=== PATIENT | male | born 1995 | race Two or more races ===

== ENCOUNTER 2017-07-27 20:45 | Emergency (ER) | payer SELFPAY ==
[2017-07-27] MEDS ORDERED: IBUPROFEN 200 MG TAB PO ONE (21:16)
[2017-07-27] MEDS ORDERED: DEXAMETHASONE 4 MG TAB PO ONE (21:16)
[2017-07-27] MEDS ORDERED: LIDOCAINE 2% VISCOUS 15 ML UDCUP PO ONE (21:17)
--- NOTE | 2017-07-27 21:19 | EDPHY ---
H & P Stated Complaint: sore throat Time Seen by Provider: 07/27/17 21:17 HPI/ROS: HPI: This is a 22-year-old male who presents with Chief Complaint: Sore throat Location: Throat Quality: Sore Duration: 2 days Signs and Symptoms: No fever, no chills, + ear pressure, + fatigue, + discomfort with swallowing, no drooling, no swollen glands, no abdominal pain, no neck stiffness, no nausea vomiting Timing: Sudden, constant Severity: Moderate Context: Patient reports that he has had a sore throat for 2-3 days. Modifying Factors: has Not tried any [id number] medications Comment: ROS: Constitutional: No fever, no chills, no weight loss Eyes: No blurred vision Respiratory: No shortness of breath, no cough Cardiovascular: No chest pain Gastrointestinal: No nausea, no vomiting no diarrhea Genitourinary: No dysuria Extremities: No myalgias Neurologic: No weakness, no numbness Skin: No rashes Hematologic: No bruising, no bleeding MEDICAL/SURGICAL/SOCIAL HISTORY: Generally healthy. Right knee arthroscopy. Source: Patient Exam Limitations: No limitations - Personal History Current Tetanus/Diphtheria Vaccine: Yes Current Tetanus Diphtheria and Acellular Pertussis (TDAP): Yes Tetanus Vaccine Date: 2012 - Medical/Surgical History Hx Asthma: No Hx Chronic Respiratory Disease: No Hx Diabetes: No Hx Cardiac Disease: No Hx Renal Disease: No Hx Cirrhosis: No Hx Alcoholism: No Hx HIV/AIDS: No Hx Splenectomy or Spleen Trauma: No Other PMH: PSH: R knee;. PMH: R ankle inj; - Social History Smoking Status: Never smoked - Physical Exam Exam: CONSTITUTIONAL: Teenage male, polite and cooperative, awake and alert, no obvious distress HEENT: Atraumatic and normocephalic, PERRL, EOMI. Tympanic membranes clear. Oropharynx clear, tonsils 1+; beefy red; + white exudate, uvula midline and moist pink mucosa. Airway patent. + spotty anterior cervical lymphadenopathy. No meningismus. Cardiovascular: Normal S1/S2, regular rate, tachycardia, without murmur rub or gallop. PULMONARY/CHEST: Symmetrical and nontender. Clear to auscultation bilaterally Good air movement. No accessory muscle usage. ABDOMEN: Soft, nondistended, nontender, no rebound, no guarding, no peritoneal signs, no masses or organomegaly. No CVAT. EXTREMITIES: 2/2 pulses, no deformities, no clubbing, no cyanosis or edema. NEUROLOGICAL: no focal neuro deficits. GCS 15. SKIN: Warm and dry, no erythema. no rash. Good capillary refill. Constitutional: Initial Vital Signs Temperature (C) 37.5 C 07/27/17 20:49 Heart Rate 123 H 07/27/17 20:49 Respiratory Rate 18 07/27/17 20:49 Blood Pressure 130/85 H 07/27/17 20:49 O2 Sat (%) 93 07/27/17 20:49 O2 Delivery Mode Room Air Allergies/Adverse Reactions: No Known Allergies Allergy (Unverified 12/18/15 16:11) Home Medications: Medication Instructions Recorded Paroxetine Cr 07/27/17 Medical Decision Making ED Course/Re-evaluation: Strep test, oral medication No signs of tonsillar abscess/airway compromise/meningitis Afebrile. No systemic signs. Strep and mono are negative Appears to be viral etiology. Advised supportive care. Differential Diagnosis: Differential diagnosis includes but is not limited to tonsillar abscess, Zach' s angina, strep pharyngitis, viral pharyngitis. - Data Points Laboratory Results: 07/27/17 07/27/17 07/27/17 Unknown 22:58 21:22 Monoscreen NEGATIVE (NEGATIVE) Group A Strep Screen NEGATIVE (NEGATIVE) Group A Strep DNA Pending Medications Given: Discontinued Medications Dexamethasone (Decadron) 8 mg PO EDNOW ONE Stop: 07/27/17 21:17 Last Admin: 07/27/17 21:27 Dose: 8 mg Ibuprofen (Motrin) 800 mg PO EDNOW ONE Stop: 07/27/17 21:17 Last Admin: 07/27/17 21:26 Dose: 800 mg Lidocaine (Lidocaine 2% Viscous) 15 ml PO ONCE ONE Stop: 07/27/17 21:18 Last Admin: 07/27/17 21:27 Dose: 15 ml Departure - Departure Disposition: Home, Routine, Self-Care Clinical Impression: Viral pharyngitis Condition: Good Instructions: Pharyngitis (ED) Additional Instructions: Take 600-800 mg every 6-8 hours with food as needed for pain and inflammation. Use [id number] Chloraseptic spray or cough drops for sore throat as needed. Referrals: [facility],. [Clinic] - 2-3 days, if not improved
[2017-07-28 00:06] VITALS: BP 127/79; PULSE 84; RESP 16; TEMP 98.8; O2SAT 94
== END 2017-07-28 00:04 | disposition home or self-care (01) ==
DX: J02.8 Acute pharyngitis due to other specified organisms (principal); B97.89 Other viral agents as the cause of diseases classified elsewhere

== ENCOUNTER 2017-08-23 11:25 | Emergency (ER) | payer OTHER ==
[2017-08-23 11:30] VITALS: TEMP 97.9
[2017-08-23] MEDS ORDERED: NS 1,000 ML IV ONE (11:41)
[2017-08-23] MEDS ORDERED: ONDANSETRON 4 MG/2 ML VIAL IVP ONE (11:41)
[2017-08-23] MEDS ORDERED: LORazepam 2 MG/ML INJ IVP ONE (11:50)
[2017-08-23 12:03] LABS: % IMMATURE GRANULYOCYTES 0.4 % (0.0-1.1); ABSOLUTE IMMATURE GRANULOCYTES 0.03 10^3/uL (0.00-0.10); ADD DIFF? NO; ADD MORPH? NO; ADD SCAN? NO; ATYPICAL LYMPHOCYTE FLAG 30 (0-99); FRAGMENT RBC FLAG 0 (0-99); HEMATOCRIT 49.1 % (40.0-51.0); HEMOGLOBIN 16.6 g/dL (13.7-17.5); LEFT SHIFT FLG 0 (0-99); LIPEMIA HEMOLYSIS FLAG 90 (0-99); MEAN CELL HEMOGLOBIN 28.9 pg (27.9-34.1); MEAN CELL HEMOGLOBIN CONCENTR. 33.8 g/dL (32.4-36.7); MEAN CELL VOLUME 85.4 fL (81.5-99.8); MEAN PLATELET VOLUME 9.5 fL (8.7-11.7); PLATELET CLUMPS FLAG 0 (0-99); PLATELET COUNT 300 10^3/uL (150-400); RED BLOOD CELL COUNT 5.75 10^6/uL (4.40-6.38); RED CELL DISTRIBUTION WIDTH 13.4 % (11.5-15.2)
--- NOTE | 2017-08-23 12:03 | EDPHY ---
H & P Stated Complaint: increased etoh last night/nausea/freq vomiting since this am HPI/ROS: CHIEF COMPLAINT: Nausea vomiting, paresthesia HISTORY OF PRESENT ILLNESS: Patient complains of nausea, vomiting, abdominal pain, tingling in his nose and his hands. Symptoms started overnight. He did ingest alcohol last night. Symptoms have been constant duration. They have been worsening throughout the morning. Severe vomiting and which worsens all the above symptoms. No chest pain but he does have epigastric abdominal pain. He says that he cannot feel his face, his nose or his hands. No difficulty walking. No trauma or injury. No known sick contacts. Recently travel to [place] last month. No other associated complaints or modifying factors. His friends are with him and expressed their concern for REVIEW OF SYSTEMS: Ten systems reviewed and are negative unless otherwise noted in the HPI PCP: None SPECIALISTS: None PAST MEDICAL HISTORY: Depression without suicidal ideation PAST SURGICAL HISTORY: Knee surgery SOCIAL HISTORY: Nonsmoker. Alcohol user. Reason from [facility]. Currently student [employer]. FAMILY HISTORY: Auditory EXAMINATION General Appearance: Alert, no distress, shaking Head: normocephalic, atraumatic Eyes: Pupils equal and round, no conjunctival pallor or injection ENT, Mouth: Mucous membranes moist. Airway patent Neck: Normal inspection, supple, non-tender Respiratory: Lungs are clear to auscultation. No wheezing, rhonchi or crackles. No retractions or distress. No tachypnea Cardiovascular: Regular rate and rhythm. No murmur. Pulses intact distally Gastrointestinal: Abdomen is soft and nondistended. Epigastric tenderness that is mild. No rebound. No guarding. No distention. No tympany. No CVA tenderness. Back: non-tender, no bony abnormalities Neurological: GCS 15. Cranial nerves 2-12 grossly intact. A&O, nonfocal, normal gait. Strength is symmetric in all 4 limbs. Reported paresthesia of the hands and nose. No sensory deficit on examination. Carpopedal spasm noted Skin: Warm and dry, no rash. No petechiae or purpura Extremities: Nontender, no pedal edema Psychiatric: Mood and affect normal DIFFERENTIAL DIAGNOSES: Including but not limited to gastritis, gastroenteritis, anxiety MDM: 11:50 a.m. Nausea vomiting, anxiety with carpopedal spasms and paresthesia. He is in no acute distress with normal vital signs. I do feel that this is exacerbated by alcohol intake last night. Abdominal exam is benign. I have ordered IV fluid, IV Zofran, IV Ativan. 12:10 p.m. Patient re-evaluated. Ativan is significantly helping his symptoms. He still nauseated but no longer shaking or paresthetic. Continue to monitor. Laboratory studies pending. 12:28 p.m. Patient re-evaluated. He is feeling significantly better. No longer feeling paresthetic. He has no complaints of abdominal pain. He is still feeling nauseated but not vomiting. I do feel that this is partially related to anxiety and we discussed this. Discharge home with Zofran, Phenergan, carafate. Increase fluid intake today. Advance diet as tolerated slowly. Follow up with primary care physician. ED precautions discussed. Source: Patient, Family Exam Limitations: No limitations - Personal History Current Tetanus/Diphtheria Vaccine: Yes Tetanus Vaccine Date: 2012 - Medical/Surgical History Hx Asthma: No Hx Chronic Respiratory Disease: No Hx Diabetes: No Hx Cardiac Disease: No Hx Renal Disease: No Hx Cirrhosis: No Hx Alcoholism: No Hx HIV/AIDS: No Hx Splenectomy or Spleen Trauma: No Other PMH: PSH: R knee;. PMH: R ankle inj;. depression - Social History Smoking Status: Current some day smoker Constitutional: Initial Vital Signs Temperature (C) 97.9 F 08/23/17 11:28 Heart Rate 69 08/23/17 11:28 Respiratory Rate 20 08/23/17 11:28 Blood Pressure 109/69 08/23/17 11:28 O2 Sat (%) 98 08/23/17 11:28 O2 Delivery Mode Room Air O2 (L/minute) 2 Allergies/Adverse Reactions: No Known Allergies Allergy (Verified 08/23/17 11:27) Home Medications: Medication Instructions Recorded Paroxetine Cr 07/27/17 Ondansetron Odt [Zofran Odt 4 mg 4 mg PO Q6 PRN #12 tab 08/23/17 (*)] Promethazine HCl [Phenergan 25mg 25 mg PO Q8 PRN #12 tab 08/23/17 (*)] Sucralfate [Carafate 1gm/10ml Oral 1 gm PO QID PRN #240 ml 08/23/17 Liquid (*)] Medical Decision Making - Data Points Laboratory Results: Laboratory Results 08/23/17 11:55 08/23/17 11:55 08/23/17 08/23/17 11:55 11:55 WBC 8.22 10^3/uL 10^3/uL (3.80-9.50) RBC 5.75 10^6/uL 10^6/uL (4.40-6.38) Hgb 16.6 g/dL g/dL (13.7-17.5) Hct 49.1 % % (40.0-51.0) MCV 85.4 fL fL (81.5-99.8) MCH 28.9 pg pg (27.9-34.1) MCHC 33.8 g/dL g/dL (32.4-36.7) RDW 13.4 % % (11.5-15.2) Plt Count 300 10^3/uL 10^3/uL (150-400) MPV 9.5 fL fL (8.7-11.7) Neut % (Auto) 67.2 % % (39.3-74.2) Lymph % (Auto) 27.6 % % (15.0-45.0) [place] % (Auto) 4.1 % L % (4.5-13.0) Eos % (Auto) 0.2 % L % (0.6-7.6) Baso % (Auto) 0.5 % % (0.3-1.7) Nucleat RBC Rel Count 0.0 % % (0.0-0.2) Absolute Neuts (auto) 5.52 10^3/uL 10^3/uL (1.70-6.50) Absolute Lymphs (auto) 2.27 10^3/uL 10^3/uL (1.00-3.00) Absolute Monos (auto) 0.34 10^3/uL 10^3/uL (0.30-0.80) Absolute Eos (auto) 0.02 10^3/uL L 10^3/uL (0.03-0.40) Absolute Basos (auto) 0.04 10^3/uL 10^3/uL (0.02-0.10) Absolute Nucleated RBC 0.00 10^3/uL 10^3/uL (0-0.01) Immature Gran % 0.4 % % (0.0-1.1) Immature Gran # 0.03 10^3/uL 10^3/uL (0.00-0.10) Sodium 144 mEq/L mEq/L (134-144) Potassium 3.8 mEq/L mEq/L (3.5-5.2) Chloride 104 mEq/L mEq/L (97-110) Carbon Dioxide 22 mEq/l mEq/l (22-31) Anion Gap 18 mEq/L H mEq/L (8-16) BUN 10 mg/dL mg/dL (7-23) Creatinine 0.8 mg/dL mg/dL (0.7-1.3) Estimated GFR > 60 Glucose 102 mg/dL H mg/dL (70-100) Calcium 10.5 mg/dL H mg/dL (8.5-10.4) Total Bilirubin 1.0 mg/dL mg/dL (0.1-1.4) Conjugated Bilirubin 0.3 mg/dL mg/dL (0.0-0.5) Unconjugated Bilirubin 0.7 mg/dL mg/dL (0.0-1.1) AST 54 IU/L IU/L (17-59) ALT 72 IU/L IU/L (21-72) Alkaline Phosphatase 50 IU/L IU/L (38-126) Total Protein 8.4 g/dL H g/dL (6.3-8.2) Albumin 5.0 g/dL g/dL (3.5-5.0) Lipase 50 IU/L IU/L (23-300) Medications Given: Discontinued Medications Sodium Chloride (Ns) 1,000 mls @ 0 mls/hr IV EDNOW ONE; Wide Open PRN Reason: Protocol Stop: 08/23/17 11:42 Last Admin: 08/23/17 11:55 Dose: 1,000 mls Lorazepam (Ativan Injection) 1 mg IVP EDNOW ONE Stop: 08/23/17 11:51 Last Admin: 08/23/17 11:55 Dose: 1 mg Ondansetron HCl (Zofran) 4 mg IVP EDNOW ONE Stop: 08/23/17 11:42 Last Admin: 08/23/17 11:55 Dose: 4 mg Departure - Departure Disposition: Home, Routine, Self-Care Clinical Impression: Anxiety reaction Nausea & vomiting Qualifiers: Vomiting type: unspecified Vomiting Intractability: non-intractable Qualified Code(s): R11.2 - Nausea with vomiting, unspecified Condition: Good Instructions: Acute Nausea and Vomiting (ED), Anxiety (ED) Additional Instructions: 1. Fluid intake today. 2. Advance diet slowly as tolerated 3. ED precautions for worsening pain, bloody vomiting, fever Referrals: NONE *PRIMARY CARE P,. [Primary Care Provider] - As per Instructions Darien Bond MD [Medical Doctor] - As per Instructions Stand Alone Forms: School Excuse Prescriptions: Ondansetron Odt [Zofran Odt 4 mg (*)] 4 mg PO Q6 PRN #12 tab PRN Reason: Nausea/Vomiting, Use 1st Promethazine HCl [Phenergan 25mg (*)] 25 mg PO Q8 PRN #12 tab PRN Reason: Nausea/Vomiting, Use 1st Sucralfate [Carafate 1gm/10ml Oral Liquid (*)] 1 gm PO QID PRN #240 ml PRN Reason: abdominal pain
[2017-08-23 12:15] LABS: ALANINE AMINOTRANSFERASE 72 IU/L (21-72); ALKALINE PHOSPHATASE 50 IU/L (38-126); ANION GAP 18 mEq/L (8-16); ASPARTATE AMINOTRANSFERASE 54 IU/L (17-59); BILIRUBIN-CONJUGATED 0.3 mg/dL (0.0-0.5); BILIRUBIN-UNCONJUGATED 0.7 mg/dL (0.0-1.1); CALCIUM 10.5 mg/dL (8.5-10.4); CARBON DIOXIDE 22 mEq/l (22-31); CHLORIDE 104 mEq/L (97-110); CREATININE 0.8 mg/dL (0.7-1.3); GLOMERULAR FILTRATION RATE > 60; GLUCOSE 102 mg/dL (70-100); POTASSIUM 3.8 mEq/L (3.5-5.2); SODIUM 144 mEq/L (134-144); TOTAL PROTEIN 8.4 g/dL (6.3-8.2)
[2017-08-23 12:50] VITALS: BP 107/69; PULSE 87; RESP 16; O2SAT 96
== END 2017-08-23 12:52 | disposition home or self-care (01) ==
DX: R11.2 Nausea with vomiting, unspecified (principal); F41.1 Generalized anxiety disorder; E86.9 Volume depletion, unspecified; F17.200 Nicotine dependence, unspecified, uncomplicated
CPT/HCPCS: 96374; J2060; J2405

== ENCOUNTER 2017-09-21 12:54 | Emergency (ER) | payer OTHER ==
[2017-09-21 13:03] VITALS: RESP 18
[2017-09-21] MEDS ORDERED: IBUPROFEN 600 MG TAB PO ONE ×2 (13:34→13:38)
[2017-09-21] MEDS ORDERED: NS 1,000 ML IV ONE (14:33)
[2017-09-21 14:48] LABS: PLATELET COUNT 198 10^3/uL (150-400)
--- NOTE | 2017-09-21 14:56 | EDPHY ---
General Narrative: CHIEF COMPLAINT: "i feel sick" HISTORY OF PRESENT ILLNESS: Patient complains of feeling sick, headache, malaise, myalgias, low back pain, cough, sore throat. Symptoms started abruptly last night. They have been persistent. He has felt very warm and febrile. He has been sweaty at times. No chest pain. The cough is nonproductive. No abdominal pain. No urinary complaints. No neck pain or stiffness. No trauma or injury. No known sick contacts. No other associated complaints or modifying factors. REVIEW OF SYSTEMS: Ten systems reviewed and are negative unless otherwise noted in the HPI PCP: Student Health at [facility] SPECIALISTS: None PAST MEDICAL HISTORY: Depression SOCIAL HISTORY: Nonsmoker. Currently a student at [employer] FAMILY HISTORY: Noncontributory EXAMINATION General Appearance: Alert, no distress Head: normocephalic, atraumatic Eyes: Pupils equal and round, no conjunctival pallor or injection ENT, Mouth: Mucous membranes moist. Uvula midline. No erythema or edema. Neck: Normal inspection, supple, non-tender. Midline trachea. Painless range of motion all planes. No meningismus or rigidity Respiratory: Lungs are clear to auscultation. No wheezing, rhonchi or crackles Cardiovascular: Regular rate and rhythm. No murmur Gastrointestinal: Abdomen is soft and nontender. No tympany rigidity. No CVA tenderness. No guarding. Nonacute abdomen. Back: non-tender, no bony abnormalities Neurological: GCS 15. A&O, nonfocal, normal gait Skin: Warm and dry, no rash. No petechiae or purpura Extremities: Nontender, no pedal edema Psychiatric: Mood and affect normal DIFFERENTIAL DIAGNOSES: Including but not limited to influenza, viral illness, pneumonia, urinary tract infection, mononucleosis MDM: 2:50 p.m. Headache, fever, sore throat, malaise with cough and body aches. Patient has history and physical exam that suggest influenza. He is in no acute distress. He was febrile at time of admission, thus he has received ibuprofen. I have IV fluids ordered, laboratory studies and influenza swab pending. Abdominal exam is benign. There is no meningismus or rigidity. 3:20 p.m. Laboratory studies are negative for any acute findings. No leukocytosis. No abnormality of the chemistry. Flu test are negative. I have ordered chest x- ray to rule out pneumonia. Urinalysis pending. 3:50 p.m. Chest x-ray is unremarkable as read by me. Still pending urinalysis. 4:40 p.m. Chest x-ray as ruled as peribronchial thickening. No definite pneumonia. There are linear changes. 4:45 p.m. I have re-evaluated the patient. His vital signs remained normal. Heart rate is 95. Pulse ox is 98% on room air. He is in no acute distress. Given the slight changes on the x-ray I will treat him for the possibility of early pneumonia. I do not feel he warrants any further inpatient treatment or care. I do feel he is stable for discharge home. We discussed that if he does not improved 24 hours this is likely. If he worsens or has any neck pain or stiffness [id number] return to the emergency department. Increase fluid intake. Ibuprofen [id number]. Medications as prescribed. Follow up on campus with [facility]. He is comfortable this plan and discharged in stable condition. - Diagnostics Imaging Results: Imaging Impressions Chest X-Ray 09/21/17 15:25 Impression: Airways disease and minimal left basilar atelectasis. No effusion. - History Smoking Status: Current some day smoker - Objective Vital Signs: Initial Vital Signs Temperature (C) 102.6 F H 09/21/17 13:00 Heart Rate 110 H 09/21/17 13:00 Respiratory Rate 18 09/21/17 13:00 Blood Pressure 104/60 09/21/17 13:00 O2 Sat (%) 97 09/21/17 13:00 O2 Delivery Mode Room Air Allergies/Adverse Reactions: No Known Allergies Allergy (Verified 08/23/17 11:27) Home Medications: Medication Instructions Recorded Azithromycin [Zithromax] 250 mg PO DAILY #6 tab 09/21/17 Laboratory Results: Laboratory Results 09/21/17 14:40 09/21/17 14:40 09/21/17 09/21/17 09/21/17 14:40 14:40 14:40 WBC 7.49 10^3/uL 10^3/uL (3.80-9.50) RBC 4.56 10^6/uL 10^6/uL (4.40-6.38) Hgb 13.7 g/dL g/dL (13.7-17.5) Hct 40.4 % % (40.0-51.0) MCV 88.6 fL fL (81.5-99.8) MCH 30.0 pg pg (27.9-34.1) MCHC 33.9 g/dL g/dL (32.4-36.7) RDW 13.2 % % (11.5-15.2) Plt Count 198 10^3/uL 10^3/uL (150-400) MPV 9.5 fL fL (8.7-11.7) Neut % (Auto) 83.9 % H % (39.3-74.2) Lymph % (Auto) 7.2 % L % (15.0-45.0) [place] % (Auto) 8.0 % % (4.5-13.0) Eos % (Auto) 0.3 % L % (0.6-7.6) Baso % (Auto) 0.3 % % (0.3-1.7) Nucleat RBC Rel Count 0.0 % % (0.0-0.2) Absolute Neuts (auto) 6.29 10^3/uL 10^3/uL (1.70-6.50) Absolute Lymphs (auto) 0.54 10^3/uL L 10^3/uL (1.00-3.00) Absolute Monos (auto) 0.60 10^3/uL 10^3/uL (0.30-0.80) Absolute Eos (auto) 0.02 10^3/uL L 10^3/uL (0.03-0.40) Absolute Basos (auto) 0.02 10^3/uL 10^3/uL (0.02-0.10) Absolute Nucleated RBC 0.00 10^3/uL 10^3/uL (0-0.01) Immature Gran % 0.3 % % (0.0-1.1) Immature Gran # 0.02 10^3/uL 10^3/uL (0.00-0.10) Sodium 140 mEq/L mEq/L (134-144) Potassium 3.8 mEq/L mEq/L (3.5-5.2) Chloride 104 mEq/L mEq/L (97-110) Carbon Dioxide 21 mEq/l L mEq/l (22-31) Anion Gap 15 mEq/L mEq/L (8-16) BUN 12 mg/dL mg/dL (7-23) Creatinine 1.0 mg/dL mg/dL (0.7-1.3) Estimated GFR > 60 Glucose 103 mg/dL H mg/dL (70-100) Calcium 9.8 mg/dL mg/dL (8.5-10.4) Nasal Influenza A PCR Nasal Influenza B PCR Monoscreen NEGATIVE (NEGATIVE) Influenza A,B Rapid 09/21/17 09/21/17 13:43 13:43 WBC RBC Hgb Hct MCV MCH MCHC RDW Plt Count MPV Neut % (Auto) Lymph % (Auto) [place] % (Auto) Eos % (Auto) Baso % (Auto) Nucleat RBC Rel Count Absolute Neuts (auto) Absolute Lymphs (auto) Absolute Monos (auto) Absolute Eos (auto) Absolute Basos (auto) Absolute Nucleated RBC Immature Gran % Immature Gran # Sodium Potassium Chloride Carbon Dioxide Anion Gap BUN Creatinine Estimated GFR Glucose Calcium Nasal Influenza A PCR NEGATIVE FOR FLU A (NEGATIVE) Nasal Influenza B PCR NEGATIVE FOR FLU B (NEGATIVE) Monoscreen Influenza A,B Rapid Cancelled Medications Given: Discontinued Medications Sodium Chloride (Ns) 1,000 mls @ 0 mls/hr IV EDNOW ONE; Wide Open PRN Reason: Protocol Stop: 09/21/17 14:34 Last Admin: 09/21/17 14:46 Dose: 1,000 mls Ibuprofen (Motrin) 600 mg PO EDNOW ONE Stop: 09/21/17 13:39 Last Admin: 09/21/17 13:41 Dose: 600 mg Departure - Departure Disposition: Home, Routine, Self-Care Clinical Impression: Upper respiratory infection Qualifiers: URI type: unspecified URI Qualified Code(s): J06.9 - Acute upper respiratory infection, unspecified Acute bronchitis Qualifiers: Bronchitis organism: unspecified organism Qualified Code(s): J20.9 - Acute bronchitis, unspecified Fever Qualifiers: Fever type: unspecified Qualified Code(s): R50.9 - Fever, unspecified Condition: Good Instructions: Acute Bronchitis (ED), Viral Syndrome (ED) Additional Instructions: 1. Medications as prescribed to completion 2. Ibuprofen 600-800 mg every 8 hours as needed 3. Increase fluid intake 4. ED precautions as discussed Referrals: NONE *PRIMARY CARE P,. [Primary Care Provider] - As per Instructions Roberto Alvarado [place] [place] - As per Instructions Physician,Emergency DeptMD [Medical Doctor] - As per Instructions Stand Alone Forms: School Excuse Prescriptions: Azithromycin [Zithromax] 250 mg PO DAILY #6 tab
--- NOTE | 2017-09-21 14:56 | EDPHY ---
General Narrative: CHIEF COMPLAINT: "i feel sick" HISTORY OF PRESENT ILLNESS: Patient complains of feeling sick, headache, malaise, myalgias, low back pain, cough, sore throat. Symptoms started abruptly last night. They have been persistent. He has felt very warm and febrile. He has been sweaty at times. No chest pain. The cough is nonproductive. No abdominal pain. No urinary complaints. No neck pain or stiffness. No trauma or injury. No known sick contacts. No other associated complaints or modifying factors. REVIEW OF SYSTEMS: Ten systems reviewed and are negative unless otherwise noted in the HPI PCP: [facility] at [facility] SPECIALISTS: None PAST MEDICAL HISTORY: Depression SOCIAL HISTORY: Nonsmoker. Currently a student at [employer] FAMILY HISTORY: Noncontributory EXAMINATION General Appearance: Alert, no distress Head: normocephalic, atraumatic Eyes: Pupils equal and round, no conjunctival pallor or injection ENT, Mouth: Mucous membranes moist. Uvula midline. No erythema or edema. Neck: Normal inspection, supple, non-tender. Midline trachea. Painless range of motion all planes. No meningismus or rigidity Respiratory: Lungs are clear to auscultation. No wheezing, rhonchi or crackles Cardiovascular: Regular rate and rhythm. No murmur Gastrointestinal: Abdomen is soft and nontender. No tympany rigidity. No CVA tenderness. No guarding. Nonacute abdomen. Back: non-tender, no bony abnormalities Neurological: GCS 15. A&O, nonfocal, normal gait Skin: Warm and dry, no rash. No petechiae or purpura Extremities: Nontender, no pedal edema Psychiatric: Mood and affect normal DIFFERENTIAL DIAGNOSES: Including but not limited to influenza, viral illness, pneumonia, urinary tract infection, mononucleosis MDM: 2:50 p.m. Headache, fever, sore throat, malaise with cough and body aches. Patient has history and physical exam that suggest influenza. He is in no acute distress. He was febrile at time of admission, thus he has received ibuprofen. I have IV fluids ordered, laboratory studies and influenza swab pending. Abdominal exam is benign. There is no meningismus or rigidity. 3:20 p.m. Laboratory studies are negative for any acute findings. No leukocytosis. No abnormality of the chemistry. Flu test are negative. I have ordered chest x- ray to rule out pneumonia. Urinalysis pending. 3:50 p.m. Chest x-ray is unremarkable as read by me. Still pending urinalysis. 4:40 p.m. Chest x-ray as ruled as peribronchial thickening. No definite pneumonia. There are linear changes. 4:45 p.m. I have re-evaluated the patient. His vital signs remained normal. Heart rate is 95. Pulse ox is 98% on room air. He is in no acute distress. Given the slight changes on the x-ray I will treat him for the possibility of early pneumonia. I do not feel he warrants any further inpatient treatment or care. I do feel he is stable for discharge home. We discussed that if he does not improved 24 hours this is likely. If he worsens or has any neck pain or stiffness [id number] return to the emergency department. Increase fluid intake. Ibuprofen [id number]. Medications as prescribed. Follow up on campus with [employer]. He is comfortable this plan and discharged in stable condition. - Diagnostics Imaging Results: Imaging Impressions Chest X-Ray 09/21/17 15:25 Impression: Airways disease and minimal left basilar atelectasis. No effusion. - History Smoking Status: Current some day smoker - Objective Vital Signs: Initial Vital Signs Temperature (C) 102.6 F H 09/21/17 13:00 Heart Rate 110 H 09/21/17 13:00 Respiratory Rate 18 09/21/17 13:00 Blood Pressure 104/60 09/21/17 13:00 O2 Sat (%) 97 09/21/17 13:00 O2 Delivery Mode Room Air Allergies/Adverse Reactions: No Known Allergies Allergy (Verified 08/23/17 11:27) Home Medications: Medication Instructions Recorded Azithromycin [Zithromax] 250 mg PO DAILY #6 tab 09/21/17 Laboratory Results: Laboratory Results 09/21/17 14:40 09/21/17 14:40 09/21/17 09/21/17 09/21/17 14:40 14:40 14:40 WBC 7.49 10^3/uL 10^3/uL (3.80-9.50) RBC 4.56 10^6/uL 10^6/uL (4.40-6.38) Hgb 13.7 g/dL g/dL (13.7-17.5) Hct 40.4 % % (40.0-51.0) MCV 88.6 fL fL (81.5-99.8) MCH 30.0 pg pg (27.9-34.1) MCHC 33.9 g/dL g/dL (32.4-36.7) RDW 13.2 % % (11.5-15.2) Plt Count 198 10^3/uL 10^3/uL (150-400) MPV 9.5 fL fL (8.7-11.7) Neut % (Auto) 83.9 % H % (39.3-74.2) Lymph % (Auto) 7.2 % L % (15.0-45.0) [place] % (Auto) 8.0 % % (4.5-13.0) Eos % (Auto) 0.3 % L % (0.6-7.6) Baso % (Auto) 0.3 % % (0.3-1.7) Nucleat RBC Rel Count 0.0 % % (0.0-0.2) Absolute Neuts (auto) 6.29 10^3/uL 10^3/uL (1.70-6.50) Absolute Lymphs (auto) 0.54 10^3/uL L 10^3/uL (1.00-3.00) Absolute Monos (auto) 0.60 10^3/uL 10^3/uL (0.30-0.80) Absolute Eos (auto) 0.02 10^3/uL L 10^3/uL (0.03-0.40) Absolute Basos (auto) 0.02 10^3/uL 10^3/uL (0.02-0.10) Absolute Nucleated RBC 0.00 10^3/uL 10^3/uL (0-0.01) Immature Gran % 0.3 % % (0.0-1.1) Immature Gran # 0.02 10^3/uL 10^3/uL (0.00-0.10) Sodium 140 mEq/L mEq/L (134-144) Potassium 3.8 mEq/L mEq/L (3.5-5.2) Chloride 104 mEq/L mEq/L (97-110) Carbon Dioxide 21 mEq/l L mEq/l (22-31) Anion Gap 15 mEq/L mEq/L (8-16) BUN 12 mg/dL mg/dL (7-23) Creatinine 1.0 mg/dL mg/dL (0.7-1.3) Estimated GFR > 60 Glucose 103 mg/dL H mg/dL (70-100) Calcium 9.8 mg/dL mg/dL (8.5-10.4) Nasal Influenza A PCR Nasal Influenza B PCR Monoscreen NEGATIVE (NEGATIVE) Influenza A,B Rapid 09/21/17 09/21/17 13:43 13:43 WBC RBC Hgb Hct MCV MCH MCHC RDW Plt Count MPV Neut % (Auto) Lymph % (Auto) [place] % (Auto) Eos % (Auto) Baso % (Auto) Nucleat RBC Rel Count Absolute Neuts (auto) Absolute Lymphs (auto) Absolute Monos (auto) Absolute Eos (auto) Absolute Basos (auto) Absolute Nucleated RBC Immature Gran % Immature Gran # Sodium Potassium Chloride Carbon Dioxide Anion Gap BUN Creatinine Estimated GFR Glucose Calcium Nasal Influenza A PCR NEGATIVE FOR FLU A (NEGATIVE) Nasal Influenza B PCR NEGATIVE FOR FLU B (NEGATIVE) Monoscreen Influenza A,B Rapid Cancelled Medications Given: Discontinued Medications Sodium Chloride (Ns) 1,000 mls @ 0 mls/hr IV EDNOW ONE; Wide Open PRN Reason: Protocol Stop: 09/21/17 14:34 Last Admin: 09/21/17 14:46 Dose: 1,000 mls Ibuprofen (Motrin) 600 mg PO EDNOW ONE Stop: 09/21/17 13:39 Last Admin: 09/21/17 13:41 Dose: 600 mg Departure - Departure Disposition: Home, Routine, Self-Care Clinical Impression: Upper respiratory infection Qualifiers: URI type: unspecified URI Qualified Code(s): J06.9 - Acute upper respiratory infection, unspecified Acute bronchitis Qualifiers: Bronchitis organism: unspecified organism Qualified Code(s): J20.9 - Acute bronchitis, unspecified Fever Qualifiers: Fever type: unspecified Qualified Code(s): R50.9 - Fever, unspecified Condition: Good Instructions: Acute Bronchitis (ED), Viral Syndrome (ED) Additional Instructions: 1. Medications as prescribed to completion 2. Ibuprofen 600-800 mg every 8 hours as needed 3. Increase fluid intake 4. ED precautions as discussed Referrals: NONE *PRIMARY CARE P,. [Primary Care Provider] - As per Instructions Roberto Alvarado MD [[facility] Primary Care Provider] - As per Instructions Physician,Emergency DeptMD [Medical Doctor] - As per Instructions Stand Alone Forms: School Excuse Prescriptions: Azithromycin [Zithromax] 250 mg PO DAILY #6 tab
[2017-09-21 17:08] VITALS: BP 111/71; PULSE 92; TEMP 100; O2SAT 98
== END 2017-09-21 17:08 | disposition home or self-care (01) ==
PROC: 3E0337Z Introduction of Electrolytic and Water Balance Substance into Peripheral Vein, Percutaneous Approach (ICD-10-PCS; principal; 2017-09-21)
DX: J06.9 Acute upper respiratory infection, unspecified (principal); J20.9 Acute bronchitis, unspecified; E86.9 Volume depletion, unspecified; F17.200 Nicotine dependence, unspecified, uncomplicated